=== PATIENT | female | born 1955 | race Caucasian/White ===

== ENCOUNTER 2017-08-06 13:48 | Emergency (ER) | payer OTHER ==
[~2017-08-06] VITALS: Ht 160 cm; Wt 62.7 kg
[2017-08-06] MEDS ORDERED: NAPROSYN500 MG PO (15:54)
[2017-08-06] MEDS ORDERED: REGLAN10 MG PO (15:54)
[2017-08-06 18:42] VITALS: BP 110/87
== END 2017-08-06 18:44 | disposition home or self-care (01) ==
LOC: EME 13:48
DX: G43.909 Migraine, unspecified, not intractable, without status migrainosus (principal)
CPT/HCPCS: 99281; 99285; J1200; J1885; J2765; J7030